=== PATIENT | male | born 1970 | race African-American/Black ===

== ENCOUNTER 2018-09-12 08:26 | Emergency (ER) | payer MEDICAID, OTHER ==
[~2018-09-12] VITALS: Ht 162.6 cm; Wt 78.9 kg
[2018-09-12] MEDS ORDERED: TETRACAINE 0.5% OPHTH DROPS 4ML OP ONE (10:00)
[2018-09-12] MEDS ORDERED: FLUORESCEIN SODIUM 1MG/STRIP BOTHEYE ONE (10:30)
[2018-09-12 10:43] VITALS: BP 139/92
== END 2018-09-12 10:43 | disposition home or self-care (01) ==
LOC: ER 09:40
DX: H10.9 Unspecified conjunctivitis (principal); E11.9 Type 2 diabetes mellitus without complications; I10 Essential (primary) hypertension; F17.200 Nicotine dependence, unspecified, uncomplicated
CPT/HCPCS: 99283

== ENCOUNTER 2019-03-10 18:03 | Emergency (ER) | payer MEDICAID ==
[~2019-03-10] VITALS: Ht 162.6 cm; Wt 77.0 kg
[2019-03-10] MEDS ORDERED: DIPHENHYDRAMINE 50MG CAPSULE PO ONE (18:45)
[2019-03-10] MEDS ORDERED: PREDNISONE 20MG TABLET PO ONE (18:45)
[2019-03-10] MEDS ORDERED: FLUORESCEIN SODIUM 1MG/STRIP LEFTEYE ONE (18:45)
[2019-03-10 19:23] VITALS: BP 130/85
== END 2019-03-10 19:23 | disposition home or self-care (01) ==
LOC: ER 18:03
DX: H10.12 Acute atopic conjunctivitis, left eye (principal); E11.9 Type 2 diabetes mellitus without complications; F17.210 Nicotine dependence, cigarettes, uncomplicated
CPT/HCPCS: 99283; J7512; Q0163